=== PATIENT | male | born 1970 | race Caucasian/White ===

== ENCOUNTER 2017-05-20 21:48 | Emergency (ER) | payer MEDICARE, OTHER ==
[~2017-05-20] VITALS: Ht 182.9 cm; Wt 106.8 kg
[~2017-05-20 21:48] MED LIST: AMOXICILLIN500 MG PO; ANTIVERT OR; ASPIRIN OR; ERYTHROMYCIN BAS1 GM OD; MOTRIN800 MG PO; NO; PENICILLN VK500 MG OR; TRAMADOL HCL50 MG PO; ULTRACET OR; ULTRAM50 M1 PO; ZITHROMAX250 MG PO
[2017-05-20 23:57] VITALS: BP 143/88
== END 2017-05-20 23:57 | disposition home or self-care (01) ==
LOC: ED 21:48
PROC: 0HQNXZZ Repair Left Foot Skin, External Approach (ICD-10-PCS; principal; 2017-05-20)
DX: S91.115A Laceration without foreign body of left lesser toe(s) without damage to nail, initial encounter (principal); W25.XXXA Contact with sharp glass, initial encounter; Y92.009 Unspecified place in unspecified non-institutional (private) residence as the place of occurrence of the external cause

== ENCOUNTER 2017-06-17 02:51 | Emergency (ER) | payer MEDICARE, OTHER ==
[~2017-06-17] VITALS: Ht 182.9 cm; Wt 100.0 kg
[2017-06-17 04:47] LABS: HEMATOCRIT 46.5 % (39.0-50.0); HEMOGLOBIN 15.4 g/dl (14.0-18.0); IMMATURE GRANULOCYTES 0.4 % (0.0-1.0); MEAN CELL VOLUME 85.6 fL CALC (80.0-100.0); MEAN CORPUSCULAR HGB 28.4 pG CALC (26.0-32.0); MEAN CORPUSCULAR HGB CONC 33.1 g/L CALC (32.0-36.0); NEUT# 3.56 thou/uL (1.82-7.42); RED BLOOD COUNT 5.43 mill/uL (4.70-6.10); RED CELL DISTRI WIDTH 13.8 % (11.5-15.5)
[2017-06-17 04:49] LABS: URINE BILIRUBIN - DIPSTICK NEGATIVE (NEGATIVE); URINE BLOOD DIPSTICK NEGATIVE (NEGATIVE); URINE CLARITY SLIGHT CLOUDY; URINE COLOR YELLOW; URINE GLUCOSE - DIPSTICK NEGATIVE (NEGATIVE); URINE KETONE TRACE mg/dL (NEGATIVE); URINE LEUK ESTERASE NEGATIVE (NEGATIVE); URINE NITRITE - DIPSTICK NEGATIVE (Negative); URINE PH 5.5 (4.5-8.0); URINE PROTEIN - DIPSTICK TRACE mg/dL (NEG-TRACE); URINE SPECIFIC GRAVITY >=1.030; URINE UROBILINOGEN - DIPSTICK 0.2 E.U./dL (0.2)
[2017-06-17 05:04] LABS: ALKALINE PHOSPHATASE 100 u/l (38-126); ANION GAP 15 (6-22 (CALC)); BILIRUBIN, TOTAL 0.8 mg/dL (0.0-1.4); BUN 23 mg/dL (9-20); BUN/CREATININE RATIO 20 (12-20 (CALC)); CALCIUM 9.1 mg/dL (8.4-10.2); CARBON DIOXIDE 29 mmol/l (22-30); CHLORIDE 104 mmol/l (95-108); CREATININE 1.2 mg/dL (0.7-1.3); GFR > 60 ML/MIN (>=60 (CALC)); GFR FOR AFR.AMER. > 60 ML/MIN (>=60 (CALC)); GLUCOSE 92 mg/dL (75-110); LIPASE 111 u/l (23-300); POTASSIUM 4.4 mmol/l (3.5-5.1); SGOT/AST 24 u/l (17-59); SGPT/ALT 33 u/l (21-72); SODIUM 144 mmol/l (137-146); TOTAL PROTEIN 6.9 g/dL (6.3-8.2)
[2017-06-17] MEDS ORDERED: ORPHENADRINE100 MG PO (06:42)
[2017-06-17] MEDS ORDERED: PERCOCET 5/325M1 TAB PO (06:42)
[2017-06-17 06:49] VITALS: BP 132/66
== END 2017-06-17 06:52 | disposition home or self-care (01) ==
LOC: ED 02:51
PROVIDERS: Emergency Medicine
DX: S39.012A Strain of muscle, fascia and tendon of lower back, initial encounter (principal); X50.0XXA Overexertion from strenuous movement or load, initial encounter; Y92.009 Unspecified place in unspecified non-institutional (private) residence as the place of occurrence of the external cause

== ENCOUNTER 2017-10-15 08:55 | Emergency (ER) | payer MEDICARE, OTHER ==
[~2017-10-15] VITALS: Ht 182.9 cm; Wt 115.0 kg
[~2017-10-15 08:55] MED LIST changes: +ORPHENADRINE100 MG PO; +PERCOCET 5/325M1 TAB PO
[2017-10-15] MEDS ORDERED: [UNRECOGNIZED DRUG - REMARK] PO (09:07)
[2017-10-15 09:11] VITALS: BP 112/61
[2017-10-15] MEDS ORDERED: TAM75CAP PO (09:26)
== END 2017-10-15 09:39 | disposition home or self-care (01) ==
LOC: ED 08:55
DX: R05 Cough (principal); J02.9 Acute pharyngitis, unspecified; R52 Pain, unspecified; F99 Mental disorder, not otherwise specified

== ENCOUNTER → 2018-10-29 | Outpatient (REF) | payer MEDICARE, OTHER ==
[~2018-10-29] MED LIST changes: +TAM75CAP PO; +[UNRECOGNIZED DRUG - REMARK] PO
[2018-10-29 11:31] LABS: HEMATOCRIT 41.1 % (39.0-50.0); HEMOGLOBIN 13.9 g/dl (14.0-18.0); IMMATURE GRANULOCYTES 0.3 % (0.0-5.0); MEAN CELL VOLUME 86.7 fL CALC (80.0-100.0); MEAN CORPUSCULAR HGB 29.3 pG CALC (26.0-32.0); MEAN CORPUSCULAR HGB CONC 33.8 g/L CALC (32.0-36.0); NEUT# 4.55 thou/uL (1.82-7.42); RED BLOOD COUNT 4.74 mill/uL (4.70-6.10); RED CELL DISTRI WIDTH 13.2 % (11.5-15.5)
[2018-10-29 11:52] LABS: ALKALINE PHOSPHATASE 82 u/l (38-126); ANION GAP 14 (6-22 (CALC)); BILIRUBIN, TOTAL 0.9 mg/dL (0.0-1.4); BUN 15 mg/dL (9-20); BUN/CREATININE RATIO 15 (12-20 (CALC)); CARBON DIOXIDE 26 mmol/l (22-30); CHLORIDE 104 mmol/l (95-108); GFR > 60 ML/MIN (>=60 (CALC)); GFR FOR AFR.AMER. > 60 ML/MIN (>=60 (CALC)); POTASSIUM 4.3 mmol/l (3.5-5.1); SGOT/AST 17 u/l (17-59); SODIUM 140 mmol/l (137-146); TOTAL PROTEIN 6.4 g/dL (6.3-8.2)
== END | disposition home or self-care (01) ==
LOC: LAB 10:33
PROVIDERS: ATTEND Internal Medicine Endocrinology, Diabetes & Metabolism
DX: F64.0 Transsexualism (principal)

== ENCOUNTER 2019-02-07 10:37 | Emergency (ER) | payer MEDICARE, OTHER ==
[~2019-02-07] VITALS: Ht 182.9 cm; Wt 115.0 kg
[2019-02-07] MEDS ORDERED: [UNRECOGNIZED DRUG - REMARK] PO (11:26)
[2019-02-07] MEDS ORDERED: SPIRONOLACT50 M1 PO (11:26)
[2019-02-07] MEDS ORDERED: PAIN MEDICATION PO (11:27)
[2019-02-07 11:30] LABS: URINE BILIRUBIN - DIPSTICK NEGATIVE (NEGATIVE); URINE BLOOD DIPSTICK NEGATIVE (NEGATIVE); URINE COLOR YELLOW; URINE GLUCOSE - DIPSTICK NEGATIVE (NEGATIVE); URINE KETONE NEGATIVE (NEGATIVE); URINE LEUK ESTERASE NEGATIVE (NEGATIVE); URINE NITRITE - DIPSTICK NEGATIVE (Negative); URINE PH 5.5 (4.5-8.0); URINE PROTEIN - DIPSTICK NEGATIVE (NEG-TRACE); URINE SPECIFIC GRAVITY 1.025
[2019-02-07] MEDS ORDERED: CYCLOBENZAPR5 MG PO (11:42)
[2019-02-07] MEDS ORDERED: MOTRIN400 MG PO (11:42)
[2019-02-07 11:46] VITALS: BP 129/88
== END 2019-02-07 11:48 | disposition home or self-care (01) ==
LOC: ED 10:37
PROVIDERS: Family Medicine
DX: S39.012A Strain of muscle, fascia and tendon of lower back, initial encounter (principal); X50.0XXA Overexertion from strenuous movement or load, initial encounter; Y93.89 Activity, other specified; Y92.003 Bedroom of unspecified non-institutional (private) residence as the place of occurrence of the external cause

== ENCOUNTER 2019-04-27 10:35 | Emergency (ER) | payer MEDICARE, MEDICAID ==
[~2019-04-27] VITALS: Ht 182.9 cm; Wt 110.5 kg
[~2019-04-27 10:35] MED LIST changes: +CYCLOBENZAPR5 MG PO; +MOTRIN400 MG PO; +PAIN MEDICATION PO; +SPIRONOLACT50 M1 PO; +[UNRECOGNIZED DRUG - REMARK] PO
[2019-04-27] MEDS ORDERED: KEFLEX500 M1 PO (12:17)
[2019-04-27] MEDS ORDERED: ALDACTONE50 MG PO (12:32)
[2019-04-27] MEDS ORDERED: ATORVASTATIN CA20 MG PO (12:33)
[2019-04-27] MEDS ORDERED: ESTRADIOL TOP (12:33)
[2019-04-27] MEDS ORDERED: ESTRACE2 MG PO (12:34)
[2019-04-27] MEDS ORDERED: LASIX 40 MG TAB40 MG PO (12:34)
[2019-04-27] MEDS ORDERED: FINASTERIDE5 MG PO (12:34)
[2019-04-27 12:35] VITALS: BP 127/79
== END 2019-04-27 12:35 | disposition home or self-care (01) ==
LOC: ED 10:35
PROC: 0HQMXZZ Repair Right Foot Skin, External Approach (ICD-10-PCS; principal; 2019-04-27)
DX: S91.114A Laceration without foreign body of right lesser toe(s) without damage to nail, initial encounter (principal); W25.XXXA Contact with sharp glass, initial encounter; Y92.009 Unspecified place in unspecified non-institutional (private) residence as the place of occurrence of the external cause

== ENCOUNTER 2019-04-28 12:41 | Emergency (ER) | payer MEDICARE, MEDICAID ==
[~2019-04-28] VITALS: Ht 182.9 cm; Wt 110.0 kg
[~2019-04-28 12:41] MED LIST changes: +ALDACTONE50 MG PO; +ATORVASTATIN CA20 MG PO; +ESTRACE2 MG PO; +ESTRADIOL TOP; +FINASTERIDE5 MG PO; +KEFLEX500 M1 PO; +LASIX 40 MG TAB40 MG PO
[2019-04-28 13:16] VITALS: BP 116/73
== END 2019-04-28 13:27 | disposition home or self-care (01) ==
LOC: ED 12:41
DX: S91.114D Laceration without foreign body of right lesser toe(s) without damage to nail, subsequent encounter (principal); X58.XXXD Exposure to other specified factors, subsequent encounter

== ENCOUNTER 2019-06-06 08:27 | Emergency (ER) | payer MEDICARE, MEDICAID ==
[~2019-06-06] VITALS: Ht 182.9 cm; Wt 100.0 kg
[2019-06-06] MEDS ORDERED: IBUPROFEN600 MG PO (09:30)
[2019-06-06] MEDS ORDERED: FLEXERIL PO (09:30)
[2019-06-06 09:55] VITALS: BP 129/89
== END 2019-06-06 09:55 | disposition home or self-care (01) ==
LOC: ED 08:27
DX: S16.1XXA Strain of muscle, fascia and tendon at neck level, initial encounter (principal); X58.XXXA Exposure to other specified factors, initial encounter

== ENCOUNTER 2020-03-29 17:57 | Emergency (ER) | payer MEDICARE, MEDICAID ==
[~2020-03-29] VITALS: Ht 182.9 cm; Wt 95.0 kg
[~2020-03-29 17:57] MED LIST changes: +FLEXERIL PO; +IBUPROFEN600 MG PO
[2020-03-29] MEDS ORDERED: ULTRAM50 M1 PO (18:15)
[2020-03-29] MEDS ORDERED: SILVADENE1 % EX (18:15)
[2020-03-29 18:25] VITALS: BP 135/79
== END 2020-03-29 18:25 | disposition home or self-care (01) ==
LOC: ED 17:57
PROC: 2W21X4Z Dressing of Face using Bandage (ICD-10-PCS; principal; 2020-03-29)
PROC: 2W2BX4Z Dressing of Left Upper Arm using Bandage (ICD-10-PCS; 2020-03-29)
PROC: 2W2DX4Z Dressing of Left Lower Arm using Bandage (ICD-10-PCS; 2020-03-29)
DX: T22.232A Burn of second degree of left upper arm, initial encounter (principal); T22.212A Burn of second degree of left forearm, initial encounter; T20.16XA Burn of first degree of forehead and cheek, initial encounter; T31.0 Burns involving less than 10% of body surface; X12.XXXA Contact with other hot fluids, initial encounter; Y93.G3 Activity, cooking and baking

== ENCOUNTER 2020-07-30 08:04 | Emergency (ER) | payer MEDICARE, MEDICAID ==
[~2020-07-30] VITALS: Ht 182.9 cm; Wt 115.5 kg
[~2020-07-30 08:04] MED LIST changes: +SILVADENE1 % EX
[2020-07-30 10:57] VITALS: BP 117/84
== END 2020-07-30 11:00 | disposition home or self-care (01) ==
LOC: ED 08:04
DX: U07.1 COVID-19 (principal); R52 Pain, unspecified; R50.9 Fever, unspecified; E78.5 Hyperlipidemia, unspecified

== ENCOUNTER 2021-02-10 15:15 | Emergency (ER) | payer MEDICARE, MEDICAID ==
[~2021-02-10] VITALS: Ht 182.9 cm; Wt 106.0 kg
[2021-02-10 16:07] LABS: URINE BILIRUBIN - DIPSTICK NEGATIVE (NEGATIVE); URINE BLOOD DIPSTICK NEGATIVE (NEGATIVE); URINE COLOR YELLOW; URINE GLUCOSE - DIPSTICK NEGATIVE (NEGATIVE); URINE KETONE NEGATIVE (NEGATIVE); URINE LEUK ESTERASE NEGATIVE (NEGATIVE); URINE PROTEIN - DIPSTICK NEGATIVE (NEG-TRACE); URINE SPECIFIC GRAVITY >=1.030; URINE UROBILINOGEN - DIPSTICK 0.2 E.U./dL (0.2)
[2021-02-10 16:12] LABS: URINE NITRITE - DIPSTICK NEGATIVE (Negative)
[2021-02-10 16:29] LABS: HEMATOCRIT 42.7 % (39.0-50.0); HEMOGLOBIN 13.8 g/dl (14.0-18.0); IMMATURE GRANULOCYTES 0.4 % (0.0-5.0); MEAN CELL VOLUME 87.5 fL CALC (80.0-100.0); MEAN CORPUSCULAR HGB 28.3 pG CALC (26.0-32.0); MEAN CORPUSCULAR HGB CONC 32.3 g/dL CAL (32.0-36.0); NEUT# 8.94 thou/uL (1.82-7.42); RED BLOOD COUNT 4.88 mill/uL (4.70-6.10); RED CELL DISTRI WIDTH 13.5 % (11.5-15.5)
[2021-02-10 16:44] LABS: ALBUMIN 3.6 g/dL (3.2-5.0); ALKALINE PHOSPHATASE 71 u/l (38-126); AMYLASE 48 u/l (30-110); BUN 19 mg/dL (9-20); BUN/CREATININE RATIO 20 (12-20 (CALC)); CHLORIDE 108 mmol/l (95-108); GFR > 60 ML/MIN (>=60 (CALC)); GFR FOR AFR.AMER. > 60 ML/MIN (>=60 (CALC)); LIPASE 102 u/l (23-300); POTASSIUM 4.3 mmol/l (3.5-5.1); SGOT/AST 22 u/l (17-59); SODIUM 136 mmol/l (137-146); TOTAL PROTEIN 6.4 g/dL (6.3-8.2)
[2021-02-10 16:45] LABS: ANION GAP 11 (6-22 (CALC)); BILIRUBIN, TOTAL 0.3 mg/dL (0.0-1.4); CARBON DIOXIDE 21 mmol/l (22-30)
[2021-02-10 16:56] LABS: MYOGLOBIN 24 ng/mL (0 - 121)
[2021-02-10 19:50] VITALS: BP 113/58
== END 2021-02-10 19:50 | disposition home or self-care (01) ==
LOC: ED 15:15
PROVIDERS: Emergency Medicine
DX: R10.31 Right lower quadrant pain (principal); E78.5 Hyperlipidemia, unspecified
CPT/HCPCS: Q9967

== ENCOUNTER 2021-06-27 15:32 | Emergency (ER) | payer MEDICARE, MEDICAID ==
[~2021-06-27] VITALS: Ht 182.9 cm; Wt 125.0 kg
[2021-06-27 18:00] VITALS: BP 118/72
[2021-06-27] MEDS ORDERED: TORADOL PO (18:31)
[2021-06-27] MEDS ORDERED: CYCLOBENZAPRINE10 MG PO (18:31)
== END 2021-06-27 18:40 | disposition home or self-care (01) ==
LOC: ED 15:32
DX: M54.41 Lumbago with sciatica, right side (principal); E78.5 Hyperlipidemia, unspecified

== ENCOUNTER 2021-09-24 19:16 | Emergency (ER) | payer MEDICARE, MEDICAID ==
[~2021-09-24] VITALS: Ht 182.9 cm; Wt 115.0 kg
[~2021-09-24 19:16] MED LIST changes: +CYCLOBENZAPRINE10 MG PO; +TORADOL PO
[2021-09-24 20:00] LABS: HEMATOCRIT 39.6 % (39.0-50.0); HEMOGLOBIN 13.2 g/dl (14.0-18.0); IMMATURE GRANULOCYTES 0.2 % (0.0-5.0); MEAN CELL VOLUME 88.2 fL CALC (80.0-100.0); MEAN CORPUSCULAR HGB 29.4 pG CALC (26.0-32.0); MEAN CORPUSCULAR HGB CONC 33.3 g/dL CAL (32.0-36.0); NEUT# 4.17 thou/uL (1.82-7.42); RED BLOOD COUNT 4.49 mill/uL (4.70-6.10)
[2021-09-24 20:08] VITALS: BP 114/69
== END 2021-09-24 20:24 | disposition home or self-care (01) ==
LOC: ED 19:16
PROVIDERS: Family Medicine
DX: U07.1 COVID-19 (principal); E78.5 Hyperlipidemia, unspecified

== ENCOUNTER 2021-09-26 12:53 | Emergency (ER) | payer MEDICARE, MEDICAID ==
[~2021-09-26] VITALS: Ht 182.9 cm; Wt 115.5 kg
[2021-09-26 14:50] VITALS: BP 112/75
== END 2021-09-26 14:50 | disposition home or self-care (01) ==
LOC: ED 12:53
DX: U07.1 COVID-19 (principal); E78.5 Hyperlipidemia, unspecified

== ENCOUNTER 2022-01-09 07:11 | Day surgery (SDC) | payer MEDICARE, MEDICAID ==
[~2022-01-09] VITALS: Ht 182.9 cm; Wt 115.2 kg
[~2022-01-09 07:11] MED LIST changes: +MULTI VITAMIN1 TAB PO
[2022-01-09 10:28] VITALS: BP 115/64
== END 2022-01-09 10:15 | disposition home or self-care (01) ==
LOC: ENDO 07:11
PROVIDERS: ATTEND Surgery
PROC: 0DBH8ZX Excision of Cecum, Via Natural or Artificial Opening Endoscopic, Diagnostic (ICD-10-PCS; principal; 2022-01-09)
DX: Z12.11 Encounter for screening for malignant neoplasm of colon (principal); D12.0 Benign neoplasm of cecum; K64.8 Other hemorrhoids; I10 Essential (primary) hypertension; F64.0 Transsexualism; Z87.890 Personal history of sex reassignment

== ENCOUNTER 2022-04-12 08:26 | Emergency (ER) | payer MEDICARE, MEDICAID ==
[~2022-04-12] VITALS: Ht 182.9 cm; Wt 111.1 kg
[2022-04-12 08:31] VITALS: BP 124/82
[2022-04-12 08:36] VITALS: BP 124/82
[2022-04-12] MEDS ORDERED: CEPHALEXIN500 M1 PO (08:51)
== END 2022-04-12 09:01 | disposition home or self-care (01) ==
LOC: ED 08:26
DX: S60.562A Insect bite (nonvenomous) of left hand, initial encounter (principal); E78.5 Hyperlipidemia, unspecified; W57.XXXA Bitten or stung by nonvenomous insect and other nonvenomous arthropods, initial encounter; Z87.890 Personal history of sex reassignment